=== PATIENT | male | born 1965 | race Caucasian/White ===

== ENCOUNTER 2018-05-21 03:19 | Observation (INO) ==
[2018-05-21] MEDS ORDERED: *HR* Dextrose 50 % in Water (Syg) 50 ML SYRINGE IVP PRN (11:20)
[2018-05-21] MEDS ORDERED: D5% in Water 1,000 ML IVC PRN (11:20)
[2018-05-21] MEDS ORDERED: Dextrose Gel 15 GM/37.5 ML TUBE PO PRN ×2 (11:20)
[2018-05-21] MEDS ORDERED: Naloxone 0.4 MG/ML INJ IVP PRN (11:21)
[2018-05-21] MEDS: Fluticasone Propionate Nasal 50 MCG/SPRAY BOTTLE NS SCH (11:53)
[2018-05-21] MEDS: Ketorolac 30 MG/ML VIAL IVP PRN ×2 (11:53→18:56)
--- NOTE | 2018-05-21 11:55 | Internal Med History&Physical ---
Date of Encounter: 05/21/18 Time of Encounter: 11:45 Internal Medicine - H&P: HPI Chief complaint: Intractable headache, left-sided facial paresthesias and L UE paresthesias Admitted From: Home Plans for Post Hospital Care: Home History of present illness: Mr. Austin is a 53 year old male with a PMH of DM 1, HTN, CVA 5. Additionally, the patient is a former one pack per day smoker. He does report that he is noncompliant with his medication regimen including noncompliance with insulin and anti-HTN meds. He reports that his last known well was 9 PM yesterday evening. At that time he began experiencing a cluster type headache behind his right eye with radiation to the right posterior neck and occiput. Additionally, he was having some left facial and left upper extremity paresthesias. He denies any prior headache history or migraine history. His spouse is at bedside and reports that he was having some dysarthria. He does note that he has a history of CVA 5 which were treated at [facility] in the [facility]. He does note that he has chronic right-sided deficits with right sided weakness since prior CVA. He denies any aggravating or alleviating factors of headache but notes that it did not improve so he decided to seek care at [facility]. While at [facility] he was found to have hypertensive urgency with SBP in the 190s. CT imaging of head obtained at [facility] and found to be negative for acute intracranial abnormality for my review of the radiologist read. Given severe hypertension and history of CVA the patient was transferred to [facility] for further workup and monitoring. He denies any ill contacts, fever, chills, recent travel, chest pain, shortness of breath, dizziness, new vision changes, nausea, vomiting, diarrhea, urinary symptoms, unilateral extremity swelling and/or pain. He will be admitted for observation and treated for hypertensive urgency. Additionally, we will rule out additional intracranial abnormalities with MR imaging and will obtain echocardiogram and carotid Dopplers. Past Med Surg Social Fam HX - Past Medical History Medical history: diabetes, hypertension, TIA Psychiatric history: no psych history - Past Surgical History Surgical History: non-contributory, vasectomy Additional surgical history: hand surgery - Social History Smoking Status: Current every day smoker Smokeless Tobacco Status: No Alcohol use: none Drug use: none - Family History Father Hx Family Cancer: Yes (skin cancer) Mother Hx Family Neurologic Disorders: Yes (Alzheimers) Internal Medicine - H&P: Meds Atorvastatin Calcium [Lipitor] 20 mg PO DAILY 05/21/18 [History] Glucagon,Human Recombinant [Glucagon Emergency Kit] 1 mg IJ AD PRN 05/21/18 [History] Insulin Degludec [Tresiba Flextouch U-100] 28 unit SQ QAM 05/21/18 [History] Insulin LISPRO [Admelog] 3 - 20 unit SQ QID 05/21/18 [History] Lisinopril [Zestril] 10 mg PO DAILY 05/21/18 [History] Metoprolol [Lopressor] 25 mg PO DAILY 05/21/18 [History] Allergy/AdvReac Type Severity Reaction Status Date / Time No Known Allergies Allergy Verified 03/25/15 19:55 All Systems PM: A 10-system review of systems was performed and is negative for pertinent find ings except as documented above in the HPI. Review of systems: REVIEW OF SYSTEMS GENERAL: Negative for any nausea, vomiting, fevers, chills, or weight loss. NEUROLOGIC: Negative for any, blind spots, double vision, facial asymmetry, dysphagia, dysarthria, hemiparesis, vertigo, ataxia. Positive for chronic blurred vision S/P CVA; positive for dysarthria, confusion, hemisensory deficits of left face and LUE which have since improved since onset HEENT: Negative for any head trauma, neck trauma, neck stiffness, photophobia, phonophobia, sinusitis, rhinitis. CARDIAC: Negative for any chest pain, dyspnea on exertion, paroxysmal nocturnal dyspnea, peripheral edema. PULMONARY: Negative for any shortness of breath, wheezing, COPD, or TB exposure. GASTROINTESTINAL: Negative for any abdominal pain, nausea, vomiting, bright red blood per rectum, melena. GENITOURINARY: Negative for any dysuria, hematuria, incontinence. INTEGUMENTARY: Negative for any rashes, cuts, insect bites. RHEUMATOLOGIC: Negative for any joint pains, photosensitive rashes, history of vasculitis or kidney problems. HEMATOLOGIC: Negative for any abnormal bruising, frequent infections or bleeding. - Constitutional Vitals: Temp Pulse Resp BP Pulse Ox 98.2 F 96 18 176/74 95 05/21/18 11:41 05/21/18 11:41 05/21/18 11:41 05/21/18 11:41 05/21/18 11:41 General appearance: Present: A&O X 3 Exam: PHYSICAL EXAMINATION: GENERAL: The patient is an elderly female who appears to be in a confused state secondary to advancing dementia. She is in no distress and is alert to self only HEENT: Head is normocephalic and atraumatic. Extraocular muscles are intact. Pupils are equal, round, and reactive to light and accommodation. NECK: Supple. No carotid bruits. No lymphadenopathy or thyromegaly. LUNGS: Clear to auscultation B/L AP and L. HEART: Regular rate and rhythm, S1, S2 without murmur. ABDOMEN: Soft, nontender, and nondistended. Positive bowel sounds. No hepatosplenomegaly was noted. EXTREMITIES: Without any cyanosis, clubbing, rash, lesions or edema. NEUROLOGIC: MENTAL STATUS: AAOx3, memory intact, fund of knowledge appropriate LANG/SPEECH: Naming and repetition intact, fluent, follows 3-step commands CRANIAL NERVES: II: Pupils equal and reactive, no RAPD, no VF deficits III, IV, : EOM intact, no gaze preference or deviation, no nystagmus. V: Normal sensation in V1, V2, and V3 segments bilaterally VII: no asymmetry, no nasolabial fold flattening VIII: normal hearing to speech IX, X: normal palatal elevation, no uvular deviation XI: 5/5 head turn and 5/5 shoulder shrug bilaterally XII: midline tongue protrusion MOTOR: 4/5 muscle power in Rt shoulder abductors/adductors, elbow flexors/extensors, wrist flexors/extensors, finger abductors/adductors. 4/5 in Rt hip flexors/extensors, knee flexors/extensors, ankle dorsiflexors and planter flexors. 5/5 muscle power in Lt shoulder abductors/adductors, elbow flexors/extensors, wrist flexors/extensors, finger abductors/adductors. 5/5 in Lt hip flexors/extensors, knee flexors/extensors, ankle dorsiflexors and planter flexors. SENSORY: Normal to touch, pinprick, vibration, temp all limbs No hemineglect, no extinction to double sided stimulation (visual & tactile) COORD: Normal finger to nose and heel to raines, no tremor, no dysmetria STATION: normal stance, no truncal ataxia GAIT: Normal; patient able to tip-toe, heel-walk. PSYCHIATRIC: Appropriate affect, denies SI/HI, without agitation or anxiety SKIN: No ulceration or induration present. - Assessment and plan (1) TIA (transient ischemic attack) Current Visit: Yes Status: Suspected Assessment and plan: Spouse at the bedside reporting mild dysarthria which began yesterday around 9 PM (this is patient's (LKW) and has since resolved Patient reporting some left facial and left upper extremity paresthesias however denies any hemiplegia He is also reporting a 6/10 headache which began behind his right eye and extends to right occiput and right posterior neck He does note a history of 6 prior CVAs all occurring in the brainstem; however, we have no record of this I will attempt to obtain records from [facility] regarding prior neuro history The patient came from [facility] CT imaging from [facility] negative for acute intracranial abnormality Obtain TTE and echocardiogram MRI of brain without contrast NIH SS exams per protocol Neuro assessments per protocol Obtain lipid panel Hemoglobin A1c pending Start atorvastatin now Daily aspirin now Resume anti-HTN medications and the patient did come in with hypertensive urgency (2) Intractable cluster headache Current Visit: Yes Status: Acute Assessment and plan: Patient presents with right-sided intractable cluster headache Denies any aura and does not have migrainous presentation; no prior history of migraines However should be noted that he does not have prior history of headaches either CT imaging from [facility] negative for acute process Was found to have hypertensive urgency at [facility]; may be contributing to h/a Headache has improved slightly with improvement in blood pressure He does endorse some neck pain as well but does not have any decrease with ROM We will give IV Toradol now and monitor History of multiple CVA, rule out with MRI Consider adding muscle relaxer if MRI is without acute findings (3) Hypertensive urgency Current Visit: Yes Status: Acute Assessment and plan: Presented from [facility] with HTN urgency SBP in the 190s at [facility] SBP 160's now poor control 2/2 noncompliance with meds resume home meds and monitor PRN hydralazine (4) HTN (hypertension) Current Visit: Yes Status: Acute Qualifiers: Hypertension type: unspecified Qualified Code(s): I10 - Essential (primary) hypertension (5) DM type 1 (diabetes mellitus, type 1) Current Visit: Yes Status: Acute Assessment and plan: Low sliding scale insulin coverage, before meals and at bedtime Accu-Cheks, diabetic diet Obtain hemoglobin A1c Qualifiers: Diabetes mellitus complication status: with unspecified complications Qualified Code(s): E10.8 - Type 1 diabetes mellitus with unspecified complications - Time Spent With Patient Total time spent is greater than 50% in coordination of care (as documented) at patient's floor/unit and/or counseling patient: less than 15 minutes
[2018-05-21] MEDS: Insulin LISPRO 300 UNITS/3 ML VIAL SQ SCH ×2 (12:05→15:58)
[2018-05-21] MEDS: Aspirin 81 MG TAB.CHEW PO SCH (13:13)
[2018-05-21] MEDS ORDERED: Insulin LISPRO 300 UNITS/3 ML VIAL SQ SCH (21:00)
[2018-05-22 05:46] LABS: Monocytes % 8.1 %
[2018-05-22 05:49] LABS: Basophils % 0.5 %; Eosinophils # 0.2 K/mcL (0.0-0.6); Eosinophils % 2.8 %; Hematocrit 42.6 % (37.5-50.1); Hemoglobin 13.9 g/dL (12.9-16.9); Immature Granulocytes % 0.3 % (0-4); Lymphocytes # 2.4 K/mcL (0.6-4.6); Lymphocytes % 40.9 %; Mean Corpuscular HGB Conc 32.6 g/dL (31.6-35.5); Mean Corpuscular Hemoglobin 29.1 pg (28.0-33.3); Mean Corpuscular Volume 89.1 fL (83.0-100.0); Mean Platelet Volume 12.3 fL (9.4-12.4); Monocytes # 0.5 K/mcL (0.0-1.3); Neutrophils # 2.7 K/mcL (1.6-8.9); Platelet Count 189 K/mcL (140-400); Red Blood Count 4.78 M/mcL (4.19-5.50); Segmented Neutrophils % 47.4 %
[2018-05-22 06:07] LABS: BUN/Creatinine Ratio 21 (6-26); Blood Urea Nitrogen 17 mg/dL (6-20); Calcium 8.8 mg/dL (8.6-10.3); Carbon Dioxide 26 mEq/L (23-29); Chloride 101 mEq/L (98-107); Chol/HDL Ratio 4.3 (0-4.9); Cholesterol 158 mg/dL (< 200); Glucose 376 mg/dL (70-105); HDL Cholesterol 37 mg/dL (40-59); LDL Cholesterol,Calculated 101 mg/dL (0-99); Osmolality,Calculated 297 (280-300); Potassium 4.1 mEq/L (3.5-5.1); Sodium 135 mEq/L (136-145); Triglycerides 102 mg/dL (< 150); eGFR For Non-African Americans > 60 (> 60)
[2018-05-22] MEDS ORDERED: Methocarbamol 500 MG TABLET PO PRN (07:37)
[2018-05-22 08:09] VITALS: BP 174/81
[2018-05-22] MEDS: Insulin LISPRO 300 UNITS/3 ML VIAL SQ SCH (08:13)
[2018-05-22] MEDS: Aspirin 81 MG TAB.CHEW PO SCH (08:13)
[2018-05-22] MEDS: Fluticasone Propionate Nasal 50 MCG/SPRAY BOTTLE NS SCH (08:14)
--- NOTE | 2018-05-22 11:49 | Discharge Summary ---
- NOTES TO OUTPATIENT PROVIDER Notes to Outpatient Provider: f/u with PCP regarding expressed anxiety and anger Orders not resulted at time of discharge: Pending orders 05/21/18 12:18 EKG [ECG 12 lead ECG] [ECG] Stat Date of Encounter: 05/22/18 Time of Encounter: 11:46 - Discharge Diagnosis (1) TIA (transient ischemic attack) Priority: Primary Status: Ruled-out (2) Intractable cluster headache Priority: Secondary Status: Acute Assessment and Plan: Patient presents with right-sided intractable cluster headache Denies any aura and does not have migrainous presentation; no prior history of migraines However should be noted that he does not have prior history of headaches either CT imaging from [facility] [place] [place] [facility] negative for acute process [facility]; may be contributing to h/a Headache has improved slightly with improvement in blood pressure He does endorse some neck pain as well but does not have any decrease with ROM We will give IV Toradol now and monitor History of multiple CVA, rule out with MRI Consider adding muscle relaxer if MRI is without acute findings 05/22--H/a are improving. No neurological cause found on imaging. Given his presentation and these are most likely cluster headaches however his un controlled hypertension is also likely contributing. He has been instructed to be compliant with hypertensive medication regimen. He has been given prescriptions for antihypertensive medications upon discharge. He is instructed to follow-up with his PCP regarding further headaches. He does admit to multiple life stressors and is anxious and having periods of anger due to life stressors. I instructed him to speak with his PCP regarding these issues for further evaluation. (3) Hypertensive urgency Priority: Secondary Status: Resolved (4) HTN (hypertension) Priority: Secondary Status: Acute Qualifiers: Hypertension type: unspecified Qualified Code(s): I10 - Essential (primary) hypertension (5) DM type 1 (diabetes mellitus, type 1) Priority: Secondary Status: Acute Qualifiers: Diabetes mellitus complication status: with unspecified complications Qualified Code(s): E10.8 - Type 1 diabetes mellitus with unspecified complications Hospital course: Mr. Austin is a 53 year old male admitted for intractable headache and hypertensive urgency. He was given Antihypertensives and home antihypertensive medication were resumed and his blood pressure is improving as is his headache. I believe most likely that his noncompliance with antihypertensive regimen by to the hypertensive urgency which further worsened his cluster headaches. The patient was complaining of headache with cluster-type presentation. However, he does have a history of CVA 5. Neuroimaging obtained and found to be negative for acute intracranial abnormality or ischemia. The patient was given a muscle relaxant and his headache further improved. He will be sent home with new prescriptions for antihypertensive medication and he will be sent home with a 2 week course of Robaxin. Discharge discussed with: patient, nurse - Time Spent with Patient Total time spent providing and/or coordinating discharge services: Less than 30 minutes - Discharge Medications Prescriptions: Methocarbamol [Robaxin] 500 mg PO Q8HR PRN 14 Days #42 tablet PRN Reason: Muscle Spasm Home Medications: Atorvastatin Calcium [Lipitor] 20 mg PO DAILY 05/21/18 [History] Glucagon,Human Recombinant [Glucagon Emergency Kit] 1 mg IJ AD PRN 05/21/18 [History] Insulin Degludec [Tresiba Flextouch U-100] 28 unit SQ QAM 05/21/18 [History] Insulin LISPRO [Admelog] 3 - 20 unit SQ QID 05/21/18 [History] Lisinopril [Zestril] 10 mg PO DAILY 30 Days #30 tablet 05/22/18 [Rx] Methocarbamol [Robaxin] 500 mg PO Q8HR PRN 14 Days #42 tablet 05/22/18 [Rx] Metoprolol [Lopressor] 25 mg PO DAILY 30 Days #30 tablet 05/22/18 [Rx] Allergies/Adverse Reactions: Allergy/AdvReac Type Severity Reaction Status Date / Time Penicillins AdvReac See Verified 05/21/18 14:46 Comments Date of admission: 05/21/18 04:39 Primary care physician: Dilia Crow, Discharging clinician: Lex Meneses Anticipated date of discharge: 05/22/18 - Constitutional Vitals: Temp Pulse Resp BP Pulse Ox 98 F 96 16 174/81 95 05/22/18 08:07 05/22/18 08:07 05/22/18 08:07 05/22/18 08:07 05/22/18 08:07 General appearance: Present: A&O X 3 Exam: PHYSICAL EXAMINATION: GENERAL: The patient is an elderly female who appears to be in a confused state secondary to advancing dementia. She is in no distress and is alert to self only HEENT: Head is normocephalic and atraumatic. Extraocular muscles are intact. Pupils are equal, round, and reactive to light and accommodation. NECK: Supple. No carotid bruits. No lymphadenopathy or thyromegaly. LUNGS: Clear to auscultation B/L AP and L. HEART: Regular rate and rhythm, S1, S2 without murmur. ABDOMEN: Soft, nontender, and nondistended. Positive bowel sounds. No hepatosplenomegaly was noted. EXTREMITIES: Without any cyanosis, clubbing, rash, lesions or edema. NEUROLOGIC: MENTAL STATUS: AAOx3, memory intact, fund of knowledge appropriate LANG/SPEECH: Naming and repetition intact, fluent, follows 3-step commands CRANIAL NERVES: II: Pupils equal and reactive, no RAPD, no VF deficits III, IV, : EOM intact, no gaze preference or deviation, no nystagmus. V: Normal sensation in V1, V2, and V3 segments bilaterally VII: no asymmetry, no nasolabial fold flattening VIII: normal hearing to speech IX, X: normal palatal elevation, no uvular deviation XI: 5/5 head turn and 5/5 shoulder shrug bilaterally XII: midline tongue protrusion MOTOR: chronic 4/5 muscle power in Rt shoulder abductors/adductors, elbow flexors/extensors, wrist flexors/extensors, finger abductors/adductors. 4/5 in Rt hip flexors/extensors, knee flexors/extensors, ankle dorsiflexors and planter flexors. 5/5 muscle power in Lt shoulder abductors/adductors, elbow flexors/extensors, wrist flexors/extensors, finger abductors/adductors. 5/5 in Lt hip flexors/extensors, knee flexors/extensors, ankle dorsiflexors and planter flexors. SENSORY: Normal to touch, pinprick, vibration, temp all limbs No hemineglect, no extinction to double sided stimulation (visual & tactile) COORD: Normal finger to nose and heel to raines, no tremor, no dysmetria STATION: normal stance, no truncal ataxia GAIT: Normal; patient able to tip-toe, heel-walk. PSYCHIATRIC: Appropriate affect, denies SI/HI, without agitation or anxiety SKIN: No ulceration or induration present. - Patient Status Disposition: Home, Self-Care Condition: Good Functional capacity at discharge: independent ambulation Overall status at discharge: patient is progressing back to baseline - Discharge Instructions Instructions: Chronic Hypertension (DC) Follow Up With: Dilia Crow CNP [Primary Care Provider] - (Your appointment has been requested. Our office will call you with an appointment time and date. ) - Diet and Activity Activity: increase activity as tolerated, resume usual activities as tolerated Diet: diabetic diet, low fat, low cholesterol, low salt diet
--- NOTE | 2018-05-23 14:50 | Electrocardiograph Report ---
[address] [address] Test Date: 2018-05-21 Pat Name: Dagoberto Austin Department: 113 Room: 3B43 Gender: M [employer] Emission [employer]: : 1965 Requested By: Lex Meneses Order Number: [id number] Reading MD: Lawson Caba Measurements Intervals [place] Rate: 97 P: 50 MI: 135 QRS: 56 QRSD: 83 T: -23 QT: 348 QTc: 402 Interpretive Statements SINUS RHYTHM MINIMAL VOLTAGE CRITERIA FOR LVH, CONSIDER NORMAL VARIANT NONSPECIFIC ST & T-WAVE ABNORMALITY Electronically Signed On 05-23-2018 14:49:09 EST by Lawson Caba
== END 2018-05-22 12:25 | disposition home or self-care (01) ==
LOC: 3BNU
PROVIDERS: ADMIT Family Medicine; ATTEND Family Medicine

== ENCOUNTER 2019-01-16 11:24 | Observation (INO) ==
--- NOTE | 2019-01-16 12:01 | Emergency Department Note ---
Disposition Clinical Impression: TIA (transient ischemic attack) Headache Qualifiers: Headache type: unspecified Headache chronicity pattern: acute headache Intractability: not intractable Qualified Code(s): R51 - Headache Disposition: Admitted As Inpatient Condition: Fair Time of Disposition: 16:05 General Adult HPI - General Chief complaint: ED Neuro Symptoms/Deficit Stated complaint: neuro symptoms-headache Time Seen by Provider: 01/16/19 11:35 Source: patient Limitations: no limitations Nursing Notes Reviewed: Yes Vital Signs Reviewed: Yes - History of Present Illness HPI Narrative: 53-year-old male with history of hypertension, CVA who presents the emergency department with complaints of headache for 4 days. The patient states his headache started on Wednesday and he experienced numbness, tingling of his entire body, both left and right side. The patient has had several CVAs in the past and states this felt similar. The numbness and tingling lasted for approximately several hours and resolved spontaneously. He has chronic right- sided upper and lower extremity weakness from his previous strokes. The patient notes that he has no blurred or double vision but states his vision is "off". His states he has been intermittently confused and unsteady on his feet. He has had no head injury. He denies any nausea, vomiting, chest pain, short of breath, back pain. Pain Scale: 4 - Related Data Home Medications Medication Instructions Recorded Confirmed Atorvastatin Calcium [Lipitor] 20 mg PO DAILY 05/21/18 01/16/19 Insulin Degludec [Tresiba 28 unit SQ QAM 05/21/18 01/16/19 Flextouch U-100] Insulin LISPRO [Admelog] 3 - 20 unit SQ QID 05/21/18 01/16/19 Allergies Allergy/AdvReac Type Severity Reaction Status Date / Time Penicillins AdvReac See Verified 05/21/18 14:46 Comments Review of Systems: ROS per history of present illness, all other systems reviewed and negative or normal. All systems ED: reviewed and negative except as stated. Review of Systems: As Per HPI Past Medical History - Past Medical History Medical history: Reports: diabetes, hypertension, TIA Surgical history: Reports: non-contributory, vasectomy Psychiatric history: Reports: no psych history - Social History Smoking Status: Never smoker Smokeless Tobacco Status: No Alcohol use: Reports: occasionally Drug use: Reports: none Physical Exam General: Conversant. No apparent distress. Follow commands. Appears stated age. Neck: No JVD. Trachea midline. Neck supple. Eyes: PERRL. No scleral icterus. HENT: Normocephalic and atraumatic. Moist mucus membranes. Cardiovascular: Regular rate and rhythm. Normal S1 and S2. No murmurs appreciated. Normal capillary refill. Extremities well perfused with 2+ distal pulses bilaterally. No edema. Pulmonary: Normal and equal breath sounds bilaterally, anteriorly and posteriorly. No wheezes, rales, or rhonchi. Not in respiratory distress. Speaks in full sentences. Abdomen: Soft, nondistended, and tontender. No bruits or masses. No guarding. Neuro: Alert and oriented to person, place, and time. CN II-XII tested and grossly intact. No hemineglect. Speech is fluid and without slurring. Sensory: Decreased sensation in right upper and lower extremity which patient states is chronic. Motor: Normal tone and bulk. No pronator drift. 5/5 strength in LUE 5/5 strength in RUE 5/5 strength in LLE 5/5 strength in RLE Coordination: Finger to nose and heel to raines testing intact bilaterally. Skin: No rashes noted on visualized skin. Musculoskeletal: No bony abnormalities visualized. Moves all extremities. Psych: Normal mood. Pleasant. Makes appropriate eye contact. - General Limitations: no limitations General appearance: alert Course - Consultations Consultation #1: Discussed case with on-call hospitalist who given the low TSH level recommends free T4 and T3 Time: 13:37 Vital Signs Temperature 97.8 F 01/16/19 11:25 Pulse Rate 98 01/16/19 11:25 Respiratory Rate 16 01/16/19 11:25 Blood Pressure 182/91 01/16/19 11:25 O2 Sat by Pulse Oximetry 98 01/16/19 11:25 Temperature 98.8 F 01/16/19 19:24 Pulse Rate 104 01/16/19 19:24 Respiratory Rate 16 01/16/19 19:24 Blood Pressure 179/72 01/16/19 19:24 O2 Sat by Pulse Oximetry 97 01/16/19 19:24 Oxygen Delivery Oxygen Delivery Room Air Medical Decision Making - [facility] Narrative Medical decision making narrative: 53-year-old male who presents the emergency department with complaints of upper and lower extremity numbness, tingling with onset 4 days ago. This has since resolved but his headache persists. The patient has had several CVAs in the past. Vital signs are stable upon arrival. The patient has no neurologic deficits at this time about his baseline right-sided upper and lower extremity weakness. Laboratory evaluation shows no evidence of leukocytosis, significant anemia. No significant electrolyte abnormalities. The patient did have low TSH therefore T3 and T4 were added per hospitalist request and these were stable. The patient has no clinical evidence of thyroid storm. Urinalysis shows no evidence of urinary tract infection. Head CT shows no evidence of acute intracranial pathology. Previous admissions do show evidence of ischemic history and there is also question of cluster headaches to be causing similar symptoms. Given the patient's history well admit for further TIA versus CVA rule out. Patient was given 325 mg aspirin. Discussed case with on-call hospitalist Dr. Patton who agrees with plan for admission and accepts the patient to the inpatient service. Patient agrees with and understands course of treatment plan including plan for admission. All questions answered. - Medical Records Medical records reviewed: Yes I reviewed the patient's medical records. - Lab Data Lab results reviewed: Yes I reviewed the patient's lab results. Result diagrams: 01/16/19 11:48 01/16/19 11:48 Lab Results 01/16/19 01/16/19 01/16/19 Range/Units 11:48 11:48 11:54 WBC 4.4 (4.3-11.1) K/mcL RBC 5.21 (4.19-5.50) M/mcL Hgb 14.9 (12.9-16.9) g/dL Hct 44.5 (37.5-50.1) % MCV 85.4 (83.0-100.0) fL MCH 28.6 (28.0-33.3) pg MCHC 33.5 (31.6-35.5) g/dL RDW 12.0 (11.5-14.5) % Plt Count 211 (140-400) K/mcL MPV 11.0 (9.4-12.4) fL Immature Gran % 0.2 (0-4) % Seg Neutrophils % 49.2 % Lymphocytes % 36.8 % Monocytes % 10.8 % Eosinophils % 2.5 % Basophils % 0.5 % Neutrophils # 2.2 (1.6-8.9) K/mcL Lymphocytes # 1.6 (0.6-4.6) K/mcL Monocytes # 0.5 (0.0-1.3) K/mcL Eosinophils # 0.1 (0.0-0.6) K/mcL Basophils # 0.0 (0.0-0.2) K/mcL Sodium 137 (136-145) mEq/L Potassium 4.1 (3.5-5.1) mEq/L Chloride 103 (98-107) mEq/L Carbon Dioxide 28 (23-29) mEq/L BUN 13 (6-20) mg/dL Creatinine 0.72 (0.70-1.30) mg/dL Est GFR ( Amer) > 60 (> 60) Est GFR (Non-Af Amer) > 60 (> 60) BUN/Creatinine Ratio 18 (6-26) Glucose 184 H (70-105) mg/dL Calculated Osmolality 289 (280-300) Calcium 9.7 (8.6-10.3) mg/dL Magnesium 1.9 (1.6-2.6) mg/dL TSH < 0.010 L (0.340-5.600) mcIU/mL Free T4 1.99 (0.70-2.00) ng/dl Free T3 7.51 H (2.50-3.90) pg/mL Urine Color Yellow (Yellow) Urine Clarity Clear (Clear) Urine pH 5.5 (5.0-8.0) pH Units Ur Specific [place] > 1.030 H (1.010-1.025) Urine Protein Trace (Neg-Trace) mg/dL Urine Glucose (UA) >=1000 H (Normal) mg/dL Urine Ketones Negative (Negative) mg/dL Urine Blood Negative (Negative) Urine Nitrite Negative (Negative) Urine Bilirubin Negative (Negative) Urine Urobilinogen Normal (Normal) mg/dL Ur Leukocyte Esterase Negative (Negative) Ur Culture Indicated? NO (NO) Urine Opiates Screen (Nufnmq=511) ng/mL Ur Buprenorphine Scrn (Cutoff=5) ng/mL Ur Barbiturates Screen (Ahhzwf=513) ng/mL Ur Phencyclidine Scrn (Cutoff=25) ng/mL Ur Amphetamines Screen (Nitydu=0718) ng/mL U Benzodiazepines Scrn (Zfndck=962) ng/mL Urine Cocaine Screen (Cutoff= 300) ng/mL U Marijuana (THC) Screen (Cutoff = 50) ng/mL Ur Drug Screen Interp 01/16/19 Range/Units 11:54 WBC (4.3-11.1) K/mcL RBC (4.19-5.50) M/mcL Hgb (12.9-16.9) g/dL Hct (37.5-50.1) % MCV (83.0-100.0) fL MCH (28.0-33.3) pg MCHC (31.6-35.5) g/dL RDW (11.5-14.5) % Plt Count (140-400) K/mcL MPV (9.4-12.4) fL Immature Gran % (0-4) % Seg Neutrophils % % Lymphocytes % % Monocytes % % Eosinophils % % Basophils % % Neutrophils # (1.6-8.9) K/mcL Lymphocytes # (0.6-4.6) K/mcL Monocytes # (0.0-1.3) K/mcL Eosinophils # (0.0-0.6) K/mcL Basophils # (0.0-0.2) K/mcL Sodium (136-145) mEq/L Potassium (3.5-5.1) mEq/L Chloride (98-107) mEq/L Carbon Dioxide (23-29) mEq/L BUN (6-20) mg/dL Creatinine (0.70-1.30) mg/dL Est GFR ( Amer) (> 60) Est GFR (Non-Af Amer) (> 60) BUN/Creatinine Ratio (6-26) Glucose (70-105) mg/dL Calculated Osmolality (280-300) Calcium (8.6-10.3) mg/dL Magnesium (1.6-2.6) mg/dL TSH (0.340-5.600) mcIU/mL Free T4 (0.70-2.00) ng/dl Free T3 (2.50-3.90) pg/mL Urine Color (Yellow) Urine Clarity (Clear) Urine pH (5.0-8.0) pH Units Ur Specific [place] (1.010-1.025) Urine Protein (Neg-Trace) mg/dL Urine Glucose (UA) (Normal) mg/dL Urine Ketones (Negative) mg/dL Urine Blood (Negative) Urine Nitrite (Negative) Urine Bilirubin (Negative) Urine Urobilinogen (Normal) mg/dL Ur Leukocyte Esterase (Negative) Ur Culture Indicated? (NO) Urine Opiates Screen Negative (Iiivub=527) ng/mL Ur Buprenorphine Scrn Negative (Cutoff=5) ng/mL Ur Barbiturates Screen Negative (Igevkl=584) ng/mL Ur Phencyclidine Scrn Negative (Cutoff=25) ng/mL Ur Amphetamines Screen Negative (Qnxxvp=6517) ng/mL U Benzodiazepines Scrn Negative (Uauote=847) ng/mL Urine Cocaine Screen Negative (Cutoff= 300) ng/mL U Marijuana (THC) Screen Negative (Cutoff = 50) ng/mL Ur Drug Screen Interp See Below - Radiology Data Radiology results reviewed: Yes I reviewed the patient's radiology results. Head CT 01/16/19 11:57 IMPRESSION: No acute intracranial abnormality. D/ / Alden Garcia MD / Alden Garcia MD Interpreting Provider: Alden Garcia MD - EKG Data EKG #1 EKG attestation: Yes I reviewed and interpreted this EKG. EKG results narrative: Normal sinus rhythm rate of 97. Normal axis. No acute ST or T-wave abnormalities. When compared with prior from 05/21/18 there are no significant changes.
[2019-01-16 12:12] LABS: Basophils % 0.5 %; Eosinophils # 0.1 K/mcL (0.0-0.6); Eosinophils % 2.5 %; Hematocrit 44.5 % (37.5-50.1); Hemoglobin 14.9 g/dL (12.9-16.9); Immature Granulocytes % 0.2 % (0-4); Lymphocytes # 1.6 K/mcL (0.6-4.6); Lymphocytes % 36.8 %; Mean Corpuscular HGB Conc 33.5 g/dL (31.6-35.5); Mean Corpuscular Hemoglobin 28.6 pg (28.0-33.3); Mean Corpuscular Volume 85.4 fL (83.0-100.0); Monocytes # 0.5 K/mcL (0.0-1.3); Monocytes % 10.8 %; Neutrophils # 2.2 K/mcL (1.6-8.9); Platelet Count 211 K/mcL (140-400); Red Blood Count 5.21 M/mcL (4.19-5.50); Segmented Neutrophils % 49.2 %; White Blood Count 4.4 K/mcL (4.3-11.1)
[2019-01-16 12:25] LABS: BUN/Creatinine Ratio 18 (6-26); Blood Urea Nitrogen 13 mg/dL (6-20); Calcium 9.7 mg/dL (8.6-10.3); Carbon Dioxide 28 mEq/L (23-29); Chloride 103 mEq/L (98-107); Glucose 184 mg/dL (70-105); Magnesium 1.9 mg/dL (1.6-2.6); Osmolality,Calculated 289 (280-300); Potassium 4.1 mEq/L (3.5-5.1); Sodium 137 mEq/L (136-145); eGFR For African Americans > 60 (> 60); eGFR For Non-African Americans > 60 (> 60)
[2019-01-16 12:40] LABS: Thyroid Stimulating Hormone < 0.010 mcIU/mL (0.340-5.600)
[2019-01-16] MEDS ORDERED: Ketorolac 15 MG/ML VIAL IVP ONE (13:12)
[2019-01-16 14:16] LABS: Triiodothyronine (T3) Free 7.51 pg/mL (2.50-3.90)
[2019-01-16] MEDS ORDERED: Naloxone 0.4 MG/ML INJ IVP PRN (15:25)
[2019-01-16] MEDS ORDERED: Aspirin 81 MG TAB.CHEW PO STA (15:30)
--- NOTE | 2019-01-16 16:03 | Internal Med History&Physical ---
Date of Encounter: 01/16/19 Time of Encounter: 15:59 Internal Medicine - H&P: HPI Chief complaint: numbness and tingling, headache Admitted From: Home Plans for Post Hospital Care: Home History of present illness: Mr. Austin is a 53 year old male with history of CVA not compliant to aspirin, insulin-dependent diabetes and hypertension presented to the emergency department with complaint of headache. As per patient his headache started on Wednesday. He saw squiggly lines and flashing lights prior to the onset of h eadache. He reports that the headache is all over his head and has been constant, 6 out of 10 throbbing pain. Never had any kind of symptoms like this before. Denies loss of vision, blurred vision or double vision. In addition to above he also experienced allover numbness and tingling prior to the start of headaches that also occurred on Wednesday 3 days prior to admission and self resolved after one hour. The numbness and tingling was all over his body and included bilateral extremities. He reports that he has had similar symptoms like this prior to his previous CVAs. He was told to take aspirin every day however he is not compliant to aspirin. He does report compliance to his insulin and lipid lowering medication. He denies heat or cold intolerance, has had no recent upper respiratory tract infections. Denies previous thyroid disease. Has had no chest pain, palpitations or diaphoresis. He denies weight loss, changes in appetite or night sweats. Currently he reports that his headache has improved somewhat. He has no nausea or vomiting associated with headaches. While in the emergency department CT head was negative for any acute abnormalities, thyroid function tests suggest subclinical hyperthyroidism so he was endorsed for admission for further evaluation of possible TIA versus CVA. Past Med Surg Social Fam HX - Past Medical History Medical history: diabetes, hypertension, TIA Psychiatric history: no psych history - Past Surgical History Surgical History: non-contributory, vasectomy Additional surgical history: hand surgery - Social History Smoking Status: Never smoker Smokeless Tobacco Status: No Alcohol use: occasionally Drug use: none - Family History Father Hx Family Cancer: Yes (skin cancer) Mother Hx Family Neurologic Disorders: Yes (Alzheimers) Internal Medicine - H&P: Meds Atorvastatin Calcium [Lipitor] 20 mg PO DAILY 05/21/18 [History] Insulin Degludec [Tresiba Flextouch U-100] 28 unit SQ QAM 05/21/18 [History] Insulin LISPRO [Admelog] 3 - 20 unit SQ QID 05/21/18 [History] Allergy/AdvReac Type Severity Reaction Status Date / Time Penicillins AdvReac See Verified 05/21/18 14:46 Comments All Systems PM: A 10-system review of systems was performed and is negative for pertinent findings except as documented above in the HPI. - Constitutional Vitals: Temp Pulse Resp BP Pulse Ox 97.8 F 90 16 179/84 100 01/16/19 11:47 01/16/19 13:38 01/16/19 13:38 01/16/19 13:38 01/16/19 13:38 Exam: General: Patient is alert, oriented, no acute distress, Head: atraumatic, normocephalic, Eye: normal appearance, PERRL, no scleral icterus, no conjunctival injection ENT: mucous membranes moist, normal external ear exam Neck: normal inspection, trachea midline, full ROM, no carotid bruits Chest: normal inspection, symmetric chest rise Respiratory: Good respiratory effort. Bilateral breath sounds are clear without wheezing, crackles, or rhonchi. Cardiovascular: Regular rate and rhythm. s1 and s2 No clicks, rubs, gallops, or murmors. Abdomen: Bowel sounds present normoactive x-4 quadrants. Abdomen is soft, nondistended. no Epigastric tenderness. No guarding or rebound. No organo megaly noted, obese musculoskeletal: Spontaneously moving all extremities. no edema, no calf tendern ess Skin: warm, dry, intact. 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 Sensation light touch intact. Cranial nerves 2- 12 is intact. Not aphasic, rapid hand movements intact, [id number] intact, strength is 5 out of 5 in all extremities. Sensation intact Psych: Patient's affect is normal Internal Med - H&P Results - Labs CBC & Chem 7: 01/16/19 11:48 01/16/19 11:48 Labs: Short CBC 01/16/19 Range/Units 11:48 WBC 4.4 (4.3-11.1) K/mcL Hgb 14.9 (12.9-16.9) g/dL Hct 44.5 (37.5-50.1) % Plt Count 211 (140-400) K/mcL Neutrophils # 2.2 (1.6-8.9) K/mcL BMP 01/16/19 11:48 Sodium 137 Potassium 4.1 Chloride 103 Carbon Dioxide 28 BUN 13 Creatinine 0.72 Glucose 184 H Calcium 9.7 - EKG Data -: EKG Interpreted by Myself (no admission EKG ) - Impressions ITS Impressions Head CT 01/16/19 11:57 IMPRESSION: No acute intracranial abnormality. D/ / Alden Garcia MD / Alden Garcia MD Interpreting Provider: Alden Garcia MD - Assessment and Plan (1) Numbness and tingling Current Visit: Yes Status: Acute Assessment and plan: Indwelling feeding bilateral upper and lower extremities will rule out TIA versus CVA CT head was nonacute OCUS was not contatced as he was out of the window for TPA ( symptoms started >72 hrs ago) as per ED physician MRI head and neck Carotid Doppler A1c, lipid panel Echocardiogram with bubble study Neuro checks as per protocol Was loaded with aspirin 325 mg in the emergency department we will continue with 81 mg daily (DOes not take ASA at home) Lipitor 80 mg daily at bedtime Cardiac monitoring EKG is pending Neurology was consulted will follow recs UA and utox ordered Aspiration, fall, seizure precautions. CT head: IMPRESSION: No acute intracranial abnormality. (2) Headache Current Visit: Yes Status: Acute Assessment and plan: Suspect migraine headaches with aura vs headache secondary to uncontrolled HTN started on fioricet continue work up as Above Qualifiers: Headache type: unspecified Headache chronicity pattern: acute headache Intractability: not intractable Qualified Code(s): R51 - Headache (3) Subclinical hyperthyroidism Current Visit: Yes Status: Acute Assessment and plan: will rule out graves vs thyroiditis ( doubt as his thyroid is non-tender and no recent URTI) vs other etiologies TSH<0.010, free T4 1.99, free T3 7.51 thyroid antibodies ordered thyroid US to evaluate currently ASymptomatic OP endocrinology referral as we have no inpatient endocrinology (4) DM type 1 (diabetes mellitus, type 1) Current Visit: No Status: Acute Assessment and plan: continue with long acting insulin and sliding scale A1c in AM Adjust as per finger sticks Qualifiers: Diabetes mellitus complication status: without complication Qualified Code(s): E10.9 - Type 1 diabetes mellitus without complications (5) HTN (hypertension) Current Visit: No Status: Acute Assessment and plan: uncontrolled losartan 50 mg in AM Qualifiers: Hypertension type: essential hypertension Qualified Code(s): I10 - Essential (primary) hypertension (6) DVT prophylaxis Current Visit: Yes Status: Acute Assessment and plan: heparin sc - Time Spent With Patient Total time spent is greater than 50% in coordination of care (as documented) at patient's floor/unit and/or counseling patient: Greater than 35 minutes
[2019-01-16 16:06] LABS: Bilirubin,Urine Negative (Negative); Blood,Urine Negative (Negative); Clarity,Urine Clear (Clear); Color,Urine Yellow (Yellow); Glucose,Urine (UA) >=1000 mg/dL (Normal); Ketones,Urine Negative (Negative); Leukocyte Esterase,Urine Negative (Negative); Nitrite,Urine Negative (Negative); PH,Urine 5.5 pH Units (5.0-8.0); Protein,Urine Trace mg/dL (Neg-Trace); Specific Gravity,Urine > 1.030 (1.010-1.025); Urobilinogen,Urine Normal (Normal)
[2019-01-16] MEDS ORDERED: Dextrose Gel 15 GM/37.5 ML TUBE PO PRN ×2 (16:10)
[2019-01-16] MEDS ORDERED: D5% in Water 1,000 ML IVC PRN (16:10)
[2019-01-16] MEDS ORDERED: *HR* Dextrose 50 % in Water (Syg) 50 ML SYRINGE IVP PRN (16:10)
[2019-01-16 16:12] LABS: Amphetamine Screen,Urine Negative ng/mL (Cutoff=1000); Barbiturate Screen,Urine Negative ng/mL (Cutoff=200); Benzodiazepines Screen,Urine Negative ng/mL (Cutoff=200); Cannabinoid Screen,Urine Negative ng/mL (Cutoff = 50); Cocaine Screen,Urine Negative ng/mL (Cutoff= 300); Opiate Screen,Urine Negative ng/mL (Cutoff=300); Phencyclidine Screen,Urine Negative ng/mL (Cutoff=25)
[2019-01-16] MEDS: Insulin LISPRO 300 UNITS/3 ML VIAL SQ SCH (17:09)
--- NOTE | 2019-01-16 19:29 | Emergency Department Note ---
Disposition Clinical Impression: TIA (transient ischemic attack) Headache Qualifiers: Headache type: unspecified Headache chronicity pattern: acute headache Intractability: not intractable Qualified Code(s): R51 - Headache Disposition: Admitted As Inpatient Condition: Fair Time of Disposition: 17:15 General Adult HPI - General Chief complaint: ED Neuro Symptoms/Deficit Stated complaint: neuro symptoms-headache Time Seen by Provider: 01/16/19 11:35 Source: patient Limitations: no limitations Nursing Notes Reviewed: Yes Vital Signs Reviewed: Yes - History of Present Illness Pain Scale: 2 - Related Data Home Medications Medication Instructions Recorded Confirmed Atorvastatin Calcium [Lipitor] 20 mg PO DAILY 05/21/18 01/16/19 Insulin Degludec [Tresiba 28 unit SQ QAM 05/21/18 01/16/19 Flextouch U-100] Insulin LISPRO [Admelog] 3 - 20 unit SQ QID 05/21/18 01/16/19 Allergies Allergy/AdvReac Type Severity Reaction Status Date / Time Penicillins AdvReac See Verified 05/21/18 14:46 Comments Past Medical History - Past Medical History Medical history: Reports: diabetes, hypertension, TIA Surgical history: Reports: non-contributory, vasectomy Psychiatric history: Reports: no psych history - Social History Smoking Status: Never smoker Smokeless Tobacco Status: No Alcohol use: Reports: occasionally Drug use: Reports: none Physical Exam - General Limitations: no limitations General appearance: alert Course Vital Signs Temperature 97.8 F 01/16/19 11:25 Pulse Rate 98 01/16/19 11:25 Respiratory Rate 16 01/16/19 11:25 Blood Pressure 182/91 01/16/19 11:25 O2 Sat by Pulse Oximetry 98 01/16/19 11:25 Temperature 98.8 F 01/16/19 16:57 Pulse Rate 99 01/16/19 16:57 Respiratory Rate 17 01/16/19 16:57 Blood Pressure 177/84 01/16/19 16:57 O2 Sat by Pulse Oximetry 97 01/16/19 16:57 Oxygen Delivery Oxygen Delivery Room Air Medical Decision Making - Lab Data Result diagrams: 01/16/19 11:48 01/16/19 11:48 Lab Results 01/16/19 01/16/19 01/16/19 Range/Units 11:48 11:48 11:54 WBC 4.4 (4.3-11.1) K/mcL RBC 5.21 (4.19-5.50) M/mcL Hgb 14.9 (12.9-16.9) g/dL Hct 44.5 (37.5-50.1) % MCV 85.4 (83.0-100.0) fL MCH 28.6 (28.0-33.3) pg MCHC 33.5 (31.6-35.5) g/dL RDW 12.0 (11.5-14.5) % Plt Count 211 (140-400) K/mcL MPV 11.0 (9.4-12.4) fL Immature Gran % 0.2 (0-4) % Seg Neutrophils % 49.2 % Lymphocytes % 36.8 % Monocytes % 10.8 % Eosinophils % 2.5 % Basophils % 0.5 % Neutrophils # 2.2 (1.6-8.9) K/mcL Lymphocytes # 1.6 (0.6-4.6) K/mcL Monocytes # 0.5 (0.0-1.3) K/mcL Eosinophils # 0.1 (0.0-0.6) K/mcL Basophils # 0.0 (0.0-0.2) K/mcL Sodium 137 (136-145) mEq/L Potassium 4.1 (3.5-5.1) mEq/L Chloride 103 (98-107) mEq/L Carbon Dioxide 28 (23-29) mEq/L BUN 13 (6-20) mg/dL Creatinine 0.72 (0.70-1.30) mg/dL Est GFR ( Amer) > 60 (> 60) Est GFR (Non-Af Amer) > 60 (> 60) BUN/Creatinine Ratio 18 (6-26) Glucose 184 H (70-105) mg/dL Calculated Osmolality 289 (280-300) Calcium 9.7 (8.6-10.3) mg/dL Magnesium 1.9 (1.6-2.6) mg/dL TSH < 0.010 L (0.340-5.600) mcIU/mL Free T4 1.99 (0.70-2.00) ng/dl Free T3 7.51 H (2.50-3.90) pg/mL Urine Color Yellow (Yellow) Urine Clarity Clear (Clear) Urine pH 5.5 (5.0-8.0) pH Units Ur Specific [place] > 1.030 H (1.010-1.025) Urine Protein Trace (Neg-Trace) mg/dL Urine Glucose (UA) >=1000 H (Normal) mg/dL Urine Ketones Negative (Negative) mg/dL Urine Blood Negative (Negative) Urine Nitrite Negative (Negative) Urine Bilirubin Negative (Negative) Urine Urobilinogen Normal (Normal) mg/dL Ur Leukocyte Esterase Negative (Negative) Ur Culture Indicated? NO (NO) Urine Opiates Screen (Oycqzs=960) ng/mL Ur Buprenorphine Scrn (Cutoff=5) ng/mL Ur Barbiturates Screen (Rfdend=760) ng/mL Ur Phencyclidine Scrn (Cutoff=25) ng/mL Ur Amphetamines Screen (Miujcu=9982) ng/mL U Benzodiazepines Scrn (Lwirgy=361) ng/mL Urine Cocaine Screen (Cutoff= 300) ng/mL U Marijuana (THC) Screen (Cutoff = 50) ng/mL Ur Drug Screen Interp 01/16/19 Range/Units 11:54 WBC (4.3-11.1) K/mcL RBC (4.19-5.50) M/mcL Hgb (12.9-16.9) g/dL Hct (37.5-50.1) % MCV (83.0-100.0) fL MCH (28.0-33.3) pg MCHC (31.6-35.5) g/dL RDW (11.5-14.5) % Plt Count (140-400) K/mcL MPV (9.4-12.4) fL Immature Gran % (0-4) % Seg Neutrophils % % Lymphocytes % % Monocytes % % Eosinophils % % Basophils % % Neutrophils # (1.6-8.9) K/mcL Lymphocytes # (0.6-4.6) K/mcL Monocytes # (0.0-1.3) K/mcL Eosinophils # (0.0-0.6) K/mcL Basophils # (0.0-0.2) K/mcL Sodium (136-145) mEq/L Potassium (3.5-5.1) mEq/L Chloride (98-107) mEq/L Carbon Dioxide (23-29) mEq/L BUN (6-20) mg/dL Creatinine (0.70-1.30) mg/dL Est GFR ( Amer) (> 60) Est GFR (Non-Af Amer) (> 60) BUN/Creatinine Ratio (6-26) Glucose (70-105) mg/dL Calculated Osmolality (280-300) Calcium (8.6-10.3) mg/dL Magnesium (1.6-2.6) mg/dL TSH (0.340-5.600) mcIU/mL Free T4 (0.70-2.00) ng/dl Free T3 (2.50-3.90) pg/mL Urine Color (Yellow) Urine Clarity (Clear) Urine pH (5.0-8.0) pH Units Ur Specific Burns (1.010-1.025) Urine Protein (Neg-Trace) mg/dL Urine Glucose (UA) (Normal) mg/dL Urine Ketones (Negative) mg/dL Urine Blood (Negative) Urine Nitrite (Negative) Urine Bilirubin (Negative) Urine Urobilinogen (Normal) mg/dL Ur Leukocyte Esterase (Negative) Ur Culture Indicated? (NO) Urine Opiates Screen Negative (Gxhccg=504) ng/mL Ur Buprenorphine Scrn Negative (Cutoff=5) ng/mL Ur Barbiturates Screen Negative (Dhgtvj=282) ng/mL Ur Phencyclidine Scrn Negative (Cutoff=25) ng/mL Ur Amphetamines Screen Negative (Hhokiw=1655) ng/mL U Benzodiazepines Scrn Negative (Ndgbmr=056) ng/mL Urine Cocaine Screen Negative (Cutoff= 300) ng/mL U Marijuana (THC) Screen Negative (Cutoff = 50) ng/mL Ur Drug Screen Interp See Below Attestation Statement - Attestation Attestation: I have seen this patient with the resident physician, I have personally evaluated this patient. I had reviewed the chart and document dictation by the resident physician and aM in agreement with the information documented by the resident physician. Please see documentation by the resident physician for complete chart including past medical history, family medical history, review of systems, current history and physical and laboratory and imaging studies. I was present for all procedures, provided direct supervision for all procedures, was present for the entirety of all procedures and provided direct guidance during the procedures. Please see documentation by the resident physician for any procedures performed. I have reviewed all interpretations of EKGs, and reviewed all EKGs performed on patient's as well. I have also reviewed reports of imaging as provided by radiology. Patient presented emergency department with concerns that he might of had a stroke, has had multiple prior strokes and TIAs, symptoms seem similar to the patient. Symptoms started 4 days ago but now resolved. Workup revealed no significant acute findings in the emergency department, he was admitted to the hospital for further evaluation and management of potential stroke/TIA like symptoms. Remained asymptomatic here in the ER.
[2019-01-16] MEDS ORDERED: Insulin LISPRO 300 UNITS/3 ML VIAL SQ SCH (21:00)
[2019-01-16] MEDS: *HR* Heparin 5,000 UNIT/ML VIAL SQ SCH (22:06)
[2019-01-16] MEDS: Acetaminophen/Butalbital/CaffeineTABLET PO PRN (22:15)
[2019-01-17 01:29] LABS: Chol/HDL Ratio 3.8 (0-4.9)
[2019-01-17] MEDS: *HR* Heparin 5,000 UNIT/ML VIAL SQ SCH ×2 (05:54→14:19)
[2019-01-17] MEDS: Insulin LISPRO 300 UNITS/3 ML VIAL SQ SCH ×2 (08:17→12:06)
[2019-01-17] MEDS: Acetaminophen/Butalbital/CaffeineTABLET PO PRN (08:22)
[2019-01-17] MEDS ORDERED: Insulin DETEMIR 100 UNIT/ML X5UNITS SQ SCH (09:00)
[2019-01-17] MEDS ORDERED: NON-FORMULARY MEDICATION 1 EACH EACH (Atorvastatin Calcium [Lipitor] 20 MG) PO SCH (09:00)
[2019-01-17] MEDS ORDERED: Aspirin 81 MG TAB.CHEW PO SCH (09:00)
[2019-01-17] MEDS ORDERED: Isovue-370 500 ML BOTTLE IVP ONE (09:06)
--- NOTE | 2019-01-17 09:26 | Neurology - Consult Note ---
<Lex Meneses J - Last Filed: 01/17/19 09:55> Date of Encounter: 01/17/19 Time of Encounter: 09:24 Assessment and Plan (1) Headache Current Visit: Yes Status: Acute Qualifiers: Headache type: unspecified Headache chronicity pattern: acute headache Intractability: not intractable Qualified Code(s): R51 - Headache (2) Numbness and tingling Current Visit: Yes Status: Acute Presenting sx of diffuse right sided parasthesias and headache with scotoma Parasthesias have resolved, headache persists but has improved 4/10 today and mostly posterior MRI brain ruled out acute CVA and was negative We will get CTA head and neck; further recommendations pending results Give Solumedrol 60mg IVP now x 1 dose Neurontin 300mg QHS Neurology will follow History of Present Illness Chief complaint: diffuse right parasthesias and headache HPI: Mr. Austin is a 53 year old male with a PMH of DM, HTN, TIA and CVA. He presents with diffuse right-sided parasthesias and complains of a headache which began on Wednesday. He denies any h/o headaches or migraines in the past. He reports that on Wednesday he developed a sudden headache and reports seeing "squiggly lines, flashing lights". After the headache began he started to experience right facial, arm and leg parasthesias. He reports similar parasthe pam occurring 3-days prior as well. He denies any aggrevating or alleviating factors. Further, he denies any focal weakness, gait difficulty, double or blurred vision, dysphagia, dysarthria, neck pain or stiffness, heat or cold intolerance. He is concerned because he reports similar sx with previous CVA. An MRI of the brain does not reveal an acute infarct and shows only chronic findings with multiple old infarcts with surrounding gliotic changes. MRI of the cervical spine reveals multilevel DDD. Urinalysis and urine tox screen are unremarkable as is the CBC. The chemistry panel reveals a subclinical hyperthyroidism. He has been having hypertension with SBP in the 170's 180's at times. This morning he reports that the right sided parasthesias have resolved, his headache has improved but persists with pain 4/10 and mostly in the occiput. Past Med Surg Social Fam HX - Past Medical History Medical history: diabetes, hypertension, TIA Psychiatric history: no psych history - Past Surgical History Surgical History: non-contributory, vasectomy Additional surgical history: hand surgery - Social History Smoking Status: Never smoker Smokeless Tobacco Status: No Alcohol use: occasionally Drug use: none - Family History Father Hx Family Cancer: Yes (skin cancer) Mother Hx Family Neurologic Disorders: Yes (Alzheimers) Medications and Allergies Atorvastatin Calcium [Lipitor] 20 mg PO DAILY 05/21/18 [History] Insulin Degludec [Tresiba Flextouch U-100] 28 unit SQ QAM 05/21/18 [History] Insulin LISPRO [Admelog] 0 unit SQ TIDWM 05/21/18 [History] Buspirone HCl [Buspar] 15 mg PO BID 01/17/19 [History] FLUoxetine HCl [Fluoxetine HCl] 10 mg PO DAILY 01/17/19 [History] Lisinopril [Zestril] 10 mg PO DAILY 01/17/19 [History] Metoprolol Succinate [Toprol Xl] 25 mg PO DAILY 01/17/19 [History] Allergy/AdvReac Type Severity Reaction Status Date / Time Penicillins AdvReac See Verified 01/17/19 10:51 Comments All Systems: The remainder of the systems were reviewed and are negative Review of Systems: REVIEW OF SYSTEMS GENERAL: Negative for any nausea, vomiting, fevers, chills NEUROLOGIC: Negative for any facial asymmetry, dysphagia, dysarthria, hemiparesis, hemisensory deficits, vertigo, ataxia, seizures, paralysis, tingling, numbness, unilateral weakness or numbness/tingling positive-diffuse right-sided paresthesias, headaches with visual aura and scotoma HEENT: Negative for any head trauma, neck trauma, neck stiffness, photophobia, phonophobia GENITOURINARY: Negative for any dysuria, hematuria, incontinence. ENDOCRINE: Negative- heat/cold intolerance, excessive sweating MUSCULOSKELETAL: Negative-Joint pain, stiffness, loss of strength Physical Examination - Vital Signs Vital Signs: Initial Vital Signs Temp Pulse Resp BP Pulse Ox 97.8 F 98 16 182/91 98 01/16/19 11:25 01/16/19 11:25 01/16/19 11:25 01/16/19 11:25 01/16/19 11:25 - Exam Exam: Examination: General Examination: *CONSTITUTIONAL: Alert and oriented x3, no acute distress *GENERAL APPEARANCE OF PATIENT appears healthy and well groomed *EYES: pupils are unequal chronically, round, & reactive to light and accommodation, conjunctiva clear without masses or ulcerations, fundi normal. *CARDIOVASCULAR: no peripheral edema, distal temperature normal, dorsalis pedis pulses normal. Refer to vital signs * MUSCULOSKELETAL: *GAIT AND STATION: normal, no abnormalities such as broad base gait or spasticity *ASSESSMENT OF MUSCLE STRENGTH IN THE UPPER AND LOWER EXTREMITIES bilateral deltoid, bicep, tricep, gas flow regulator strength, hip flexors ,anterior tibialis, dorsoflexion of the foot 4/5 *MUSCLE TONE IN THE UPPER AND LOWER EXTREMITIES normal. No abnormal movements, fasciculations or atrophy identified. Neurological: *ORIENTATION to person, situation, time and place *LANGUAGE AND FUNCTION no significant aphasia or dysarthia was noted. *ATTENTION AND CONCENTRATION are normal *LANGUAGE FUNCTION no significant aphasia or dysarthia was noted. *FUND OF KNOWLEDGE aware of current events, past history, vocabulary *MENTAL attention span and concentration normal. *CN II optic fundi were normal, no papilledema noted. *CN III,IV, pupillary asymmetry chronically with rt larger than left (RT 3mm LT 2mm) reactive to light and accommodation, extraocular eye movements were full, no nystagmus and no ptosis noted. *CN V shows normal sensation and jaw opens symmetrically. *CN VII shows normal facial movement symmetrically, upper and lower bilaterally. *CN VIII shows no significant hearing loss on exam *CN IX-Xpalate elevated symmetrically *CN XI normal strength in the sternocleidomastoid muscles, symmetrical shoulder shrugging. *CN XII tongue protruded in the midline, with normal strength and movement. *SENSORY EXAMINATION light touch intact *REFLEXES: deep tendon reflexes were normal and symmetrical , grade 2/4 diffusely, no pathological reflexes were noted. *CEREBELLAR TESTING normal finger to nose, heel/knee/raines *PAIN LEVEL 4/10 posterior headache Results - Laboratory Findings CBC and BMP: 01/16/19 11:48 01/16/19 11:48 Abnormal lab findings: Abnormal lab results Glucose 184 mg/dL (70-105) H 01/16/19 11:48 POC Glucose 361 mg/dL (70-99) H 01/16/19 20:46 HDL Cholesterol 37 mg/dL (40-59) L 01/17/19 00:52 TSH < 0.010 mcIU/mL (0.340-5.600) L 01/16/19 11:48 Free T3 7.51 pg/mL (2.50-3.90) H 01/16/19 11:48 Ur Specific [place] > 1.030 (1.010-1.025) H 01/16/19 11:54 Urine Glucose (UA) >=1000 mg/dL (Normal) H 01/16/19 11:54 - Diagnostic Findings Additional findings: MR/MR head/brain wo con IMPRESSION: Brain: Multiple old infarcts with surrounding gliotic change. Mild small vessel ischemic changes No acute infarct or hemorrhage. Cervical spine: Multilevel degenerative disc disease in the cervical spine as described. See above for details of each level. Consult Discharge Plan - Plan Referrals: Dilia Crow CNP [Primary Care Provider] - 01/24/19 1:00 pm Negin Jacobo MD [Partnered Physician] - (Appointment has been requested. ) <Marlin Mchugh I - Last Filed: 01/17/19 12:50> Date of Encounter: 01/17/19 Assessment and Plan (1) Headache Current Visit: Yes Status: Acute Qualifiers: Headache type: unspecified Headache chronicity pattern: acute headache Intractability: not intractable Qualified Code(s): R51 - Headache (2) Numbness and tingling Current Visit: Yes Status: Acute I have personally performed a face to face diagnostic evaluation, including HPI, EXAM, which is included in the Assesment and plan, which was discussed with Lex Meneses CNP, I agree with the above outlined documentation. Patient was been admitted with these headaches as well as paresthesias Without any focal findings on neurological examination So far MRI of the brain is negative Suggest CT angiogram for any extracranial stenosis We will treat his headaches with 1 dose of silo Medrol at the same time starting him on gabapentin to take it at night for these numbness and paresthesias This time not much evidence of any stroke suspect she likely has complicated migraine attack predominantly affecting his vision. Marlin Mchugh MD. NeurologyI History of Present Illness HPI: Mr. Austin is a 53 year old male All Systems: The remainder of the systems were reviewed and are negative Physical Examination - Vital Signs Vital Signs: Initial Vital Signs Temp Pulse Resp BP Pulse Ox 97.8 F 98 16 182/91 98 01/16/19 11:25 01/16/19 11:25 01/16/19 11:25 01/16/19 11:25 01/16/19 11:25 Results - Laboratory Findings CBC and BMP: 01/16/19 11:48 01/16/19 11:48 Abnormal lab findings: Abnormal lab results Glucose 184 mg/dL (70-105) H 01/16/19 11:48 POC Glucose 361 mg/dL (70-99) H 01/16/19 20:46 Hemoglobin A1c 7.5 % (-5.6) H 01/17/19 00:52 HDL Cholesterol 37 mg/dL (40-59) L 01/17/19 00:52 TSH < 0.010 mcIU/mL (0.340-5.600) L 01/16/19 11:48 Free T3 7.51 pg/mL (2.50-3.90) H 01/16/19 11:48 Ur Specific [place] > 1.030 (1.010-1.025) H 01/16/19 11:54 Urine Glucose (UA) >=1000 mg/dL (Normal) H 01/16/19 11:54
[2019-01-17 09:37] LABS: Estimated Average Glucose 169 mg/dl
[2019-01-17] MEDS ORDERED: Metoprolol XL (24 HR) Succ 25 MG TAB.ER.24H PO SCH (11:44)
--- NOTE | 2019-01-17 11:49 | Internal Med Progress Note ---
Hospitalist Progress Note - Encounter Date of Encounter: 01/17/19 Time of Encounter: 08:00 - Subjective Interval History: patient was seen and examined at bedside denies numbness ad tingling of the extremities. continue to have on/off headache. no new neurological deficit. is tolerating Po diet. no changes in speech. denies vision chanages. has had no au ra. all questions answered. has had no N/V. - Exam Vitals: Temp Pulse Resp BP Pulse Ox 98.4 F 101 20 140/76 96 01/17/19 11:14 01/17/19 11:14 01/17/19 11:14 01/17/19 11:14 01/17/19 11:14 Exam: General: Patient is alert, oriented, no acute distress, Head: atraumatic, normocephalic, Eye: normal appearance, PERRL, no scleral icterus, no conjunctival injection ENT: mucous membranes moist, normal external ear exam Neck: normal inspection, trachea midline, full ROM, no carotid bruits Chest: normal inspection, symmetric chest rise Respiratory: Good respiratory effort. Bilateral breath sounds are clear without wheezing, crackles, or rhonchi. Cardiovascular: Regular rate and rhythm. s1 and s2 No clicks, rubs, gallops, or murmors. Abdomen: Bowel sounds present normoactive x-4 quadrants. Abdomen is soft, nondistended. no Epigastric tenderness. No guarding or rebound. No organomegaly noted, obese musculoskeletal: Spontaneously moving all extremities. no edema, no calf tenderness Skin: warm, dry, intact. 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 Sensation light touch intact. Cranial nerves 2- 12 is intact. Not aphasic, rapid hand movements intact, [id number] intact, strength is 5 out of 5 in all extremities. Sensation intact Psych: Patient's affect is normal - Assessment and Plan (1) Numbness and tingling Current Visit: Yes Status: Acute Assessment and Plan: Indwelling feeding bilateral upper and lower extremities will rule out TIA versus CVA CT head was nonacute OCUS was not contacted as he was out of the window for TPA ( symptoms started >72 hrs ago) as per ED physician MRI head no acute infarc- full report below CTA head anc neck- none-acute A1c 7.5, lipid panel noted Echocardiogram with bubble study- EF 65-70%, no PFO - full report below Neuro checks as per protocol Was loaded with aspirin 325 mg in the emergency department we will continue with 81 mg daily (DOes not take ASA at home) Lipitor daily at bedtime Cardiac monitoring EKG is pending Neurology on board will follow recs utox negative Aspiration, fall, seizure precautions. CT head: IMPRESSION: No acute intracranial abnormality. CTA head and neck: No acute abnormality or flow-limiting stenosis of the major arteries of the head and neck. MRI head: Multiple old infarcts with surrounding gliotic change. Mild small vessel ischemic changes No acute infarct or hemorrhage. TTE: LVEF 65-70%. Mild concentric left ventricular hypertrophy. Mild left ventricular diastolic dysfunction. Normal right ventricular structure and function. No significant valvular dysfunction. No pulmonary hypertension. Non-diagnostic of PFO with agitated saline contrast. (2) Headache Current Visit: Yes Status: Acute Assessment and Plan: Suspect migraine headaches with aura vs headache secondary to uncontrolled HTN started on fioricet continue work up as Above (3) DDD (degenerative disc disease), cervical Current Visit: Yes Status: Acute Assessment and Plan: MRI cervical spine: Multilevel degenerative disc disease in the cervical spine as described.- fullr eport below was given solumedrol and started on neurotin by neurology will need Op spine surgery follow up Pt/OT consulted (4) Subclinical hyperthyroidism Current Visit: Yes Status: Acute Assessment and Plan: will rule out graves vs thyroiditis ( doubt as his thyroid is non-tender and no recent URTI) vs other etiologies TSH<0.010, free T4 1.99, free T3 7.51 thyroid antibodies ordered thyroid US to evaluate currently ASymptomatic OP endocrinology referral as we have no inpatient endocrinology (5) DM type 1 (diabetes mellitus, type 1) Current Visit: No Status: Acute Assessment and Plan: continue with long acting insulin and sliding scale A1c in AM Adjust as per finger sticks (6) HTN (hypertension) Current Visit: No Status: Acute Assessment and Plan: uncontrolled increased lorena elisinopril dose to 20 mg continue with metoprolol (7) DVT prophylaxis Current Visit: Yes Status: Acute Assessment and Plan: heparin sc - Time Spent with Patient Total time spent is greater than 50% in coordination of care (as documented) at patient's floor/unit and/or counseling patient: Internal Medicine: Result - Labs CBC & Chem 7: 01/16/19 11:48 01/16/19 11:48 Labs: Short CBC 01/16/19 Range/Units 11:48 WBC 4.4 (4.3-11.1) K/mcL Hgb 14.9 (12.9-16.9) g/dL Hct 44.5 (37.5-50.1) % Plt Count 211 (140-400) K/mcL Neutrophils # 2.2 (1.6-8.9) K/mcL BMP 01/16/19 11:48 Sodium 137 Potassium 4.1 Chloride 103 Carbon Dioxide 28 BUN 13 Creatinine 0.72 Glucose 184 H Calcium 9.7 Urine 01/16/19 Range/Units 11:54 Urine Color Yellow (Yellow) Urine Clarity Clear (Clear) Urine pH 5.5 (5.0-8.0) pH Units Ur Specific Foster > 1.030 H (1.010-1.025) Urine Protein Trace (Neg-Trace) mg/dL Urine Glucose (UA) >=1000 H (Normal) mg/dL - Impressions Impressions Head CT 01/16/19 11:57 IMPRESSION: No acute intracranial abnormality. D/ / Alden Garcia MD / Alden Garcia MD Interpreting Provider: Alden Garcia MD Brain MRI 01/16/19 15:24 IMPRESSION: Brain: Multiple old infarcts with surrounding gliotic change. Mild small vessel ischemic changes No acute infarct or hemorrhage. Cervical spine: Multilevel degenerative disc disease in the cervical spine as described. See above for details of each level. D/ / Bonifacio Wetzel / Bonifacio Wetzel Interpreting Provider: Bonifacio Wetzel Cervical Spine MRI 01/16/19 15:24 IMPRESSION: Brain: Multiple old infarcts with surrounding gliotic change. Mild small vessel ischemic changes No acute infarct or hemorrhage. Cervical spine: Multilevel degenerative disc disease in the cervical spine as described. See above for details of each level. D/ / Bonifacio Wetzel / Bonifacio Wetzel Interpreting Provider: Bonifacio Wetzel Echocardiogram 08/12/19 15:30 Impressions: LVEF 65-70%. Mild concentric left ventricular hypertrophy. Mild left ventricular diastolic dysfunction. Normal right ventricular structure and function. No significant valvular dysfunction. No pulmonary hypertension. Non-diagnostic of PFO with agitated saline contrast. Left Ventricular Wall Motion: Rest Echo Findings All wall segments showed normal motion. Findings: Study Quality * Technically sub-optimal due to poor echocardiographic windows. ECG Findings * Sinus tachycardia. Left Ventricle * LVEF 65-70%. * Normal LV chamber size and systolic function. * Mild concentric left ventricular hypertrophy. * Mild left ventricular diastolic dysfunction. Right Ventricle * Normal right ventricular structure and function. Left Atrium * Normal left atrial size. Right Atrium * Normal right atrial size. Interatrial Septum * Non-diagnostic of PFO with agitated saline contrast. Aortic Valve * Trileaflet aortic valve with normal function. * No aortic stenosis. * No aortic regurgitation. Mitral Valve * Normal mitral valve structure. * No mitral stenosis. * Trace mitral regurgitation. Tricuspid Valve * Normal tricuspid valve structure. * No tricuspid stenosis. * Trace tricuspid regurgitation. * Estimated RVSP is 19 mmHg. * Estimated RA pressure is 8 mmHg. * No pulmonary hypertension. Pulmonic Valve * Pulmonic valve is not well visualized. * No pulmonic stenosis. * No pulmonic regurgitation. Aorta * Normally sized aortic root. Pericardium * The pericardium appears normal. IVC * The IVC is not dilated. * < 50% respiratory change. Head CTA 01/17/19 09:06 IMPRESSION: No acute abnormality or flow-limiting stenosis of the major arteries of the head and neck. Prominence of the bilateral palatine tonsils, right more than left, likely reactive or related to mild tonsillitis. Recommend correlation with direct visualization to exclude underlying mass. D/ / Joe Allen MD / Joe Allen MD Interpreting Provider: Joe Allen MD Neck CTA 01/17/19 09:06 IMPRESSION: No acute abnormality or flow-limiting stenosis of the major arteries of the head and neck. Prominence of the bilateral palatine tonsils, right more than left, likely reactive or related to mild tonsillitis. Recommend correlation with direct visualization to exclude underlying mass. D/ / Joe Allen MD / Joe Allen MD Interpreting Provider: Joe Allen MD Consult Discharge Plan - Plan Referrals: Dilia Crow CNP [Primary Care Provider] - 01/24/19 1:00 pm Negin Jacobo MD [Partnered Physician] - (Appointment has been requested. ) (2) Headache Qualifiers: Headache type: unspecified Headache chronicity pattern: acute headache Intra ctability: not intractable Qualified Code(s): R51 - Headache (5) DM type 1 (diabetes mellitus, type 1) Qualifiers: Diabetes mellitus complication status: without complication Qualified Code(s): E10.9 - Type 1 diabetes mellitus without complications (6) HTN (hypertension) Qualifiers: Hypertension type: essential hypertension Qualified Code(s): I10 - Essential (primary) hypertension
[2019-01-17] MEDS: methylPREDNISolone 125 MG/2 ML VIAL IVP ONE ×2 (12:05→12:06)
[2019-01-17 16:39] VITALS: BP 160/75
--- NOTE | 2019-01-17 16:45 | Discharge Summary ---
- NOTES TO OUTPATIENT PROVIDER Notes to Outpatient Provider: follow up with ENT ( enlarged tonsils ) follow up with endocrinology ( subclinical hyerthyroidism), follow up with neurology Orders not resulted at time of discharge: Pending orders 01/17/19 00:52 Thyroid Antibodies AM 0400 Thyrotropin Receptor Ab (TRAb) AM 0400 Date of Encounter: 01/17/19 Time of Encounter: 16:44 - Discharge Diagnosis (1) Numbness and tingling Priority: Primary Status: Acute (2) Headache Priority: Secondary Status: Acute Qualifiers: Headache type: unspecified Headache chronicity pattern: acute headache Intractability: not intractable Qualified Code(s): R51 - Headache (3) DDD (degenerative disc disease), cervical Priority: Secondary Status: Acute (4) Subclinical hyperthyroidism Priority: Secondary Status: Acute (5) DM type 1 (diabetes mellitus, type 1) Priority: Secondary Status: Acute Qualifiers: Diabetes mellitus complication status: without complication Qualified Code(s): E10.9 - Type 1 diabetes mellitus without complications (6) HTN (hypertension) Priority: Secondary Status: Acute Qualifiers: Hypertension type: essential hypertension Qualified Code(s): I10 - Essential (primary) hypertension (7) DVT prophylaxis Priority: Secondary Status: Acute (8) Tonsil asymmetry Priority: Secondary Status: Acute Hospital course: "Mr. Austin is a 53 year old male with history of CVA not compliant to aspirin, insulin-dependent diabetes and hypertension presented to the emergency department with complaint of headache. As per patient his headache started on Wednesday. He saw squiggly lines and flashing lights prior to the onset of he adache. He reports that the headache is all over his head and has been constant, 6 out of 10 throbbing pain. Never had any kind of symptoms like this before. Denies loss of vision, blurred vision or double vision. In addition to above he also experienced allover numbness and tingling prior to the start of headaches that also occurred on Wednesday 3 days prior to admission and self resolved after one hour. The numbness and tingling was all over his body and included bilateral extremities. He reports that he has had similar symptoms like this prior to his previous CVAs. He was told to take aspirin every day however he is not compliant to aspirin. He does report compliance to his insulin and lipid lowering medication. He denies heat or cold intolerance, has had no recent upper respiratory tract infections. Denies previous thyroid disease. Has had no chest pain, palpitations or diaphoresis. He denies weight loss, changes in appetite or night sweats. Currently he reports that his headache has improved somewhat. He has no nausea or vomiting associated with headaches. While in the emergency department CT head was negative for any acute abnormalities, thyroid function tests suggest subclinical hyperthyroidism so he was endorsed for admission for further evaluation of possible TIA versus CVA." Patient presented with above presentation and had above ED course. He had MRI of the brain without any signs of acute infarct or hemorrhage. Cervical spine showed degenerative disc disease. CTA head and neck without significant stenosis. Echocardiogram without evidence of PFO and LVEF of 65- 70%. Full report of all diagnostic tests below. Neurology was consulted and he received 1 dose of IV Solu-Medrol with improvement of his headache. In addition he was not knee she hated on gabapentin take at night's. Headache resolved. 4 degenerative disc disease he was recommended to follow-up with outpatient spine surgery. Thyroid functions test performed,TSH<0.010, free T4 1.99, free T3 7.51. Consistent with subclinical hyperthyroidism. Thyroid antibodies were ordered for PCP to follow. Would need to have outpatient thyroid ultrasound to evaluate the thyroid. Currently asymptomatic outpatient endocrinology referral was made as we have no endocrinology coverage as inpatient. He understands that he will need close follow-up with endocrinology. There was incidental findings of Prominence of the bilateral palatine tonsils, right more than left, likely reactive or related to mild tonsillitis. ENT referral was made as outpatient ( on exam: uvula visible, no mass visible, right palantine tonsil is larger than the left, no signs of infection ) this was discussed with him and he understands. A1c 7.5. patient wish to be discharged. all labs and imaging discussed with him adn he understands that he will need to be compliant with ASA as it has been recommended form his last CVAs. he will need to follow up for above problems. was at bedside and i discussed above again with and she understands that he will need above follow up. ( ENT, endocrinology ( thyroid US), PCP, spine center, neurology) MRI head/cervical spine :Brain: Multiple old infarcts with surrounding gliotic change. Mild small vessel ischemic changes No acute infarct or hemorrhage. Cervical spine: Multilevel degenerative disc disease in the cervical spine as described. See above for details of each level. CTA head and neck: CT/CT angio neck IMPRESSION: No acute abnormality or flow-limiting stenosis of the major arteries of the head and neck. Prominence of the bilateral palatine tonsils, right more than left, likely reactive or related to mild tonsillitis. Recommend correlation with direct visualization to exclude underlying mass. Ct head IMPRESSION: No acute intracranial abnormality. TTE: LVEF 65-70%. Mild concentric left ventricular hypertrophy. Mild left ventricular diastolic dysfunction. Normal right ventricular structure and function. No significant valvular dysfunction. No pulmonary hypertension. Non-diagnostic of PFO with agitated saline contrast carotid doppler Impressions: The bilateral carotid arteries have minimal plaque.. Discharge discussed with: patient, nurse, wine consultant - Time Spent with Patient Total time spent providing and/or coordinating discharge services: Time spent: Greater than 30 minutes (35) - Discharge Medications Prescriptions: New Aspirin 81 mg PO DAILY #30 tab.chew Gabapentin [Neurontin] 300 mg PO HS #15 capsule Lisinopril [Zestril] 20 mg PO DAILY #30 tablet Continued Insulin LISPRO [Admelog] 0 unit SQ TIDWM Atorvastatin Calcium [Lipitor] 20 mg PO DAILY Insulin Degludec [Tresiba Flextouch U-100] 28 unit SQ QAM Buspirone HCl [Buspar] 15 mg PO BID FLUoxetine HCl [Fluoxetine HCl] 10 mg PO DAILY Metoprolol Succinate [Toprol Xl] 25 mg PO DAILY Discontinued Lisinopril [Zestril] 10 mg PO DAILY Home Medications: Atorvastatin Calcium [Lipitor] 20 mg PO DAILY 05/21/18 [History] Insulin Degludec [Tresiba Flextouch U-100] 28 unit SQ QAM 05/21/18 [History] Insulin LISPRO [Admelog] 0 unit SQ TIDWM 05/21/18 [History] Aspirin 81 mg PO DAILY #30 tab.chew 01/17/19 [Rx] Buspirone HCl [Buspar] 15 mg PO BID 01/17/19 [History] FLUoxetine HCl [Fluoxetine HCl] 10 mg PO DAILY 01/17/19 [History] Gabapentin [Neurontin] 300 mg PO HS #15 capsule 01/17/19 [Rx] Lisinopril [Zestril] 20 mg PO DAILY #30 tablet 01/17/19 [Rx] Metoprolol Succinate [Toprol Xl] 25 mg PO DAILY 01/17/19 [History] Allergies/Adverse Reactions: Allergy/AdvReac Type Severity Reaction Status Date / Time Penicillins AdvReac See Verified 01/17/19 10:51 Comments Date of admission: 01/16/19 15:36 Primary care physician: Dilia Crow, Consults: 01/16/19 15:26 Consult to Physical Therapy [CONS] Routine Comment: Evaluate, develop and implement POC Reason for Consult: dispostion Does patient have active BEDREST order?: No Is patient medically & hemodynamically stable?: Yes Patient assessed for mobility or mobilized this visit?: Yes OT [Consult to Occupational Therapy] [CONS] Routine Comment: Evaluate, develop and implement POC Reason for Consult: disposition Does patient have active BEDREST order?: No Is patient medically & hemodynamically stable?: Yes Patient assessed for mobility or mobilized this visit?: Yes 01/16/19 15:29 Consult to Neurology [CONS] Routine Consulting Provider: Neu[facility] Reason for Consult: STROKE VS TIA VS MIGRAINE Call Completed: No - Constitutional Vitals: Temp Pulse Resp BP Pulse Ox 98.7 F 97 20 160/75 98 01/17/19 16:37 01/17/19 16:37 01/17/19 16:37 01/17/19 16:37 01/17/19 16:37 Exam: General: Patient is alert, oriented, no acute distress, Head: atraumatic, normocephalic, Eye: normal appearance, PERRL, no scleral icterus, no conjunctival injection ENT: mucous membranes moist, normal external ear exam, uvula visible, no mass visualized on palantine tonsils Neck: normal inspection, trachea midline, full ROM, no carotid bruits Chest: normal inspection, symmetric chest rise Respiratory: Good respiratory effort. Bilateral breath sounds are clear without wheezing, crackles, or rhonchi. Cardiovascular: Regular rate and rhythm. s1 and s2 No clicks, rubs, gallops, or murmors. Abdomen: Bowel sounds present normoactive x-4 quadrants. Abdomen is soft, nondistended. no Epigastric tenderness. No guarding or rebound. No organomegaly noted, obese musculoskeletal: Spontaneously moving all extremities. no edema, no calf tenderness Skin: warm, dry, intact. 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 Sensation light touch intact. Cranial nerves 2- 12 is intact. Not aphasic, rapid hand movements intact, [id number] intact, strength is 5 out of 5 in all extremities. Sensation intact Psych: Patient's affect is normal - Patient Status Disposition: Home, Self-Care Condition: Fair Functional capacity at discharge: independent ambulation Overall status at discharge: patient is back to baseline - Ambulatory Orders Ambulatory Orders: US thyroid [US] Time Frame: 1 Week, Facility: [facility], Location: Radiology - Discharge Instructions Follow Up With: Marlin Mchugh MD [Partnered Physician] - (Appointment has been requested. ) Bonifacio Campos Jr, MD [Partnered Physician] - (Appt has been requested. degenerative disc disease ) Negni Jacobo MD [Partnered Physician] - (Appointment has been requested. r>L enlarged palantine tonsil) Dilia Crow CNP [Primary Care Provider] - 01/24/19 1:00 pm (follow up with spine surgery / center for degenerative disc disease follow up with PCP follow up with endocrinology about abnormal thyroid function test - results of thyroid US to be reviewed by PCP and endocrinology follow up with neurology for headaches follow up with ENT for enlarged tonsils.) Additional Instructions: follow up with spine surgery / center for degenerative disc disease follow up with PCP follow up with endocrinology about abnormal thyrid function test follow up with neurology for headaches follow up with ENT for enlarged tonsils. - Diet and Activity Activity: increase activity as tolerated Diet: diabetic diet
--- NOTE | 2019-01-17 19:40 | Electrocardiograph Report ---
[address] [address] Test Date: 2019-01-16 Pat Name: Dagoberto Austin Department: 113 Room: 3B43 Gender: M Hydraulic Repairer: : 1965 Requested By: Sisi Lombardi Order Number: [id number] Reading MD: Leatha Blanchard Measurements Intervals Roland Rate: 97 P: 24 MS: 135 QRS: 11 QRSD: 91 T: 106 QT: 336 QTc: 391 Interpretive Statements SINUS RHYTHM POSSIBLE LEFT ATRIAL ENLARGEMENT [-0.1mV P WAVE IN V1/V2] LEFT VENTRICULAR HYPERTROPHY AND ST-T CHANGE [VOLTAGE CRITERIA PLUS ST/T ABNORMALITY] Electronically Signed On 01-17-2019 19:38:49 EDT by Leatha Blanchard
[2019-01-17] MEDS ORDERED: Gabapentin 300 MG CAPSULE PO SCH (21:00)
[2019-01-18] MEDS ORDERED: FLUoxetine HCl 10 MG CAPSULE PO SCH (09:00)
[2019-01-18] MEDS ORDERED: Lisinopril 20 MG TABLET PO SCH (09:00)
[2019-01-18 12:42] LABS: Thyroglobulin Antibody <0.9 IU/mL (0.0-4.0)
== END 2019-01-17 17:44 | disposition home or self-care (01) ==
LOC: 3BNU 11:24 → EMEROOARM 11:24 → 3BNU 16:34
PROVIDERS: ADMIT Internal Medicine; ATTEND Internal Medicine